=== PATIENT | male | born 1960 | race Caucasian/White ===

== ENCOUNTER 2017-06-02 10:11 | Emergency (ER) | payer OTHER ==
[2017-06-02 10:15] VITALS: TEMP 98.2; BMI 30.7
[2017-06-02] MEDS ORDERED: SODIUM CHLORIDE 1,000 ML IV STA (10:38)
[2017-06-02] MEDS ORDERED: METOCLOPRAMIDE HCL INJECTION 10 MG/2 ML VIAL IVPB ONE (10:38)
[2017-06-02] MEDS ORDERED: METOCLOPRAMIDE HCL INJECTION 10 MG/2 ML VIAL ONE (10:55)
--- NOTE | 2017-06-02 10:59 | PDOC ---
History of Present Illness - General Chief Complaint: Blood Pressure Problem Stated Complaint: ELEVATED BP Time Seen by Provider: 06/02/17 10:25 History Source: Patient - History of Present Illness Timing/Duration: other (last night) Associated Symptoms: reports: headaches, malaise. denies: chest pain, cough, diaphoresis, fever/chills, nausea/vomiting, shortness of breath, weakness Past History - Past Medical History Allergies/Adverse Reactions: Allergies Allergy/AdvReac Type Severity Reaction Status Date / Time No Known Allergies Allergy Verified 06/02/17 10:15 Home Medications: Ambulatory Orders Lisinopril [Zestril] 20 mg PO DAILY 03/16/12 Metformin HCl [Glucophage Xr] 500 mg PO TID 03/16/12 Lisinopril [Prinivil -] 40 mg PO DAILY #30 tablet 06/02/17 Diabetes: Yes HTN: Yes Hypercholesterolemia: Yes - Psycho/Social/Smoking Cessation Hx Anxiety: No Suicidal Ideation: No Smoking Status: Yes Smoking History: Never smoked Number of Cigarettes Smoked Daily: 2 Information on smoking cessation initiated: No Hx Alcohol Use: Yes (daily) Substance Use Type: Alcohol Review of Systems - Review of Systems Constitutional: Yes: Malaise. No: Chills, Fever HEENTM: No: Blurred Vision Respiratory: No: Cough, Shortness of Breath Cardiac (ROS): No: Chest Pain ABD/GI: No: Nausea, Vomiting Neurological: Yes: Headache, Dizziness *Physical Exam - Vital Signs Last Vital Signs Temp Pulse Resp BP Pulse Ox 98.2 F 99 H 19 159/97 97 06/02/17 10:12 06/02/17 10:12 06/02/17 10:12 06/02/17 10:12 06/02/17 10:12 - Physical Exam General Appearance: Yes: Appropriately Dressed. No: Apparent Distress HEENT: positive: Normal Voice. negative: Scleral Icterus (R), Scleral Icterus ( L) Neck: positive: Supple Respiratory/Chest: positive: Lungs Clear, Normal Breath Sounds. negative: Respiratory Distress Cardiovascular: positive: Regular Rate, S1, S2 Gastrointestinal/Abdominal: positive: Soft. negative: Tender Extremity: positive: Normal Inspection Integumentary: positive: Dry, Warm Neurologic: positive: Fully Oriented, Alert, Normal Mood/Affect Heart Score/ECG Review - ECG Intrepretation Comment:: 06/02/17 12:44 TWI in lead 111 only, ekg otherwise unremarkable ED Treatment Course - LABORATORY CBC & Chemistry Diagram: 06/02/17 10:45 06/02/17 10:45 - RADIOLOGY Radiology Studies Ordered: Category Date Time Status HEAD CT WITHOUT CONTRAST [CT] Stat CT Scan 06/02/17 10:38 Ordered Medical Decision Making - Medical Decision Making 06/02/17 10:52 56-year-old male, history of [id number] diabetes, hyperlipidemia, hypertension, non-compliant with lisinopril, here with malaise and occipital headache in the setting of elevated blood pressure. Patient states last night he started feeling unwell and anxious and had a constant occipital headache with possible dizziness. Symptoms have since improved. No nausea, vomiting, visual changes, slurred speech or focal weakness. Denies CP or SOB. States blood pressure last night was 200s over 100s. Patient reports that his blood pressure has been increasing and does admit that he does not always take his lisinopril. States last time he saw his primary doctor was over a year ago, but is planning on changing doctors as he has a new insurance that his old doctor no longer accepts. Patient also reports a history of alcohol abuse, especially over the past 8 months in the face of life stressors. Admits to drinking half a pint of rum a day, but states he stopped drinking 2 days ago and not sure if this is the source of his symptoms See exam [place] w/ malaise w/ worsening HTN in the setting of non-compliance and recent cessation of ETOH after prolonged use Stable in ED w/ no focal deficits and does not appear to be in withdrawal at this time -will check basic labs and CTH -anticipate discharge if w/u neg w/ instructions to take BP meds as directed and will will refer to new PCP 06/02/17 10:59 06/02/17 12:[address] head unremarkable. EKG w/ twi in lead 111 only, no old to compare. In the setting of no chest pain/sob and neg trop, will not explore further at this time. After patient was informed of results, patient became extremely emotional and began crying. Reports that his 20-year-old son was recently incarcerated. Patient does report feeling better after IV fluid and Reglan and requesting discharge at this time. Will discharge w/ refill of lisinopril (had lengthy discussion with patient about importance of compliance). Will refer to new PCP *DC/Admit/Observation/Transfer Diagnosis at time of Disposition: Headache Qualifiers: Headache type: unspecified Headache chronicity pattern: acute headache Intractability: not intractable Qualified Code(s): R51 - Headache - Discharge Dispostion Disposition: HOME Condition at time of disposition: Improved - Prescriptions Prescriptions: Lisinopril [Prinivil -] 40 mg PO DAILY #30 tablet - Referrals Referrals: Lamberto Rojas MD [Staff Physician] - - Patient Instructions Printed Discharge Instructions: DI for High Blood Pressure, Alcohol Use Disorder Additional Instructions: Take medication as prescribed and follow-up with your PMD - Post Discharge Activity Work/School Note: Back to Work
[2017-06-02 11:06] LABS: BASOPHIL 0.5 % (0-2.0); EOSINOPHIL 2.2 % (0-4.5); MCH 28.7 pg (25.7-33.7); MCHC 33.4 g/dl (32.0-35.9); MEAN CELL VOLUME 85.9 fl (80-96); MEAN PLT VOLUME 7.8 fl (7.5-11.1); NEUTROPHILS 71.8 % (42.8-82.8); PLATELET COUNT 176 K/MM3 (134-434); RDW 12.6 % (11.9-15.9); WHITE BLOOD COUNT 8.6 K/mm3 (4.0-10.0)
[2017-06-02 11:19] LABS: ALBUMIN 4.4 g/dl (3.4-5.0); ANION GAP 10 (8-16); BILIRUBIN,TOTAL 0.4 mg/dL (0.2-1.0); CALCIUM 9.5 mg/dL (8.5-10.1); CO2 26 mmol/L (21-32); GLUCOSE,RANDOM 172 mg/dL (74-106); SGOT/AST 44 U/L (15-37); SGPT/ALT 106 U/L (12-78); TOT PROT 8.3 g/dl (6.4-8.2)
[2017-06-02 11:21] LABS: ALK PHOS 88 U/L (45-117); CPK 172 IU/L (39-308); TROPONIN I < 0.02 ng/ml (0.00-0.05)
--- NOTE | 2017-06-02 13:09 | EKG ---
Test Reason : Blood Pressure : / mmHG Vent. Rate : 074 BPM Atrial Rate : 074 BPM P-R Int : 156 ms QRS Dur : 084 ms QT Int : 382 ms P-R-T Axes : 043 043 -17 degrees QTc Int : 424 ms NORMAL SINUS RHYTHM NONSPECIFIC T WAVE ABNORMALITY ABNORMAL ECG NO PREVIOUS ECGS AVAILABLE Confirmed by CIERRA CASAREZ, ANUEL ([id number]) on 06/02/2017 1:09:28 PM Referred By: Confirmed By:ANUEL NORTON MD
[2017-06-02 13:24] VITALS: BP 135/75; PULSE 75
== END 2017-06-02 13:53 | disposition home or self-care (01) ==
LOC: JER 10:11
PROC: 3E033GC Introduction of Other Therapeutic Substance into Peripheral Vein, Percutaneous Approach (ICD-10-PCS; principal; 2017-06-02)
PROC: 3E0337Z Introduction of Electrolytic and Water Balance Substance into Peripheral Vein, Percutaneous Approach (ICD-10-PCS; 2017-06-02)
DX: R51 Headache (principal); I10 Essential (primary) hypertension; E78.5 Hyperlipidemia, unspecified; E11.9 Type 2 diabetes mellitus without complications
CPT/HCPCS: 36415; 70450-TC; 80053; 82553; 84484; 85025; 93005; 93010; 99282-25

== ENCOUNTER 2017-11-13 12:45 | Emergency (ER) | payer OTHER ==
[2017-11-13 12:49] VITALS: BP 147/86; TEMP 99.4; BMI 32.3
[2017-11-13] MEDS ORDERED: ONDANSETRON *ODT* 4 MG TABLET SL ONE (15:23)
[2017-11-13] MEDS ORDERED: ONDANSETRON *ODT* 4 MG TABLET ONE (15:28)
--- NOTE | 2017-11-13 15:33 | PDOC ---
History of Present Illness - General Chief Complaint: Cold Symptoms Stated Complaint: ABD PAIN, VOMITING Time Seen by Provider: 11/13/17 15:09 History Source: Patient Exam Limitations: No Limitations - History of Present Illness Initial Comments: 11/13/17 15:28 Patient is a 56-year-old male with history of hypertension, high cholesterol, [id number] diabetes. Patient is an employee at a hospital, 3 days ago started to have diarrhea, chills, vomiting. Ambulatory, eating and drinking without difficulty. Currently afebrile. Past Medical History: [Denies]. Allergies: No known allergies Medications: [ See medication list] Family History: Non-contributory Social History: Denies smoking, alcohol use, or IVDU Vital signs on arrival are [notable for pulse of 122] Review of Systems GENERAL/CONSTITUTIONAL: [Tactile fever. No weakness. No weight change.] HEAD, EYES, EARS, NOSE AND THROAT: [No change in vision. No ear pain or discharge. No sore throat. ] CARDIOVASCULAR: [No chest pain or shortness of breath.] RESPIRATORY: [No cough, wheezing, or hemoptysis.] GASTROINTESTINAL: [Nausea and vomiting + Diarrhea.] GENITOURINARY: [No dysuria, frequency, or change in urination.] MUSCULOSKELETAL: [No joint or muscle swelling or pain. No neck or back pain.] SKIN AND BREASTS: [No rash or easy bruising.] NEUROLOGIC: [No headache, vertigo, loss of consciousness, or loss of sensation.] PSYCHIATRIC: [No depression or anxiety.] ENDOCRINE: [No increased thirst. No abnormal weight change.] HEMATOLOGIC/LYMPHATIC: [No anemia, easy bleeding, or history of blood clots.] ALLERGIC/IMMUNOLOGIC: [No hives or skin allergy. No latex allergy.] Physical Exam: GENERAL: [The patient is awake, alert, and fully oriented, in no acute distress. ] EYES: [Pupils equal, round and reactive to light, extraocular movements intact, sclera anicteric, conjunctiva clear.] ENT: [Ears normal, nares patent, oropharynx clear without exudates. Moist mucous membranes. No uvula deviation. Moist mucus membranes.] NECK: [Normal range of motion, supple without lymphadenopathy, JVD, or masses.] LUNGS: [Breath sounds equal, clear to auscultation bilaterally. No wheezes, and no crackles.] HEART: [Regular rate and rhythm, normal S1 and S2 without murmur, rub or gallop. ] ABDOMEN: [Soft, nontender, normoactive bowel sounds. No guarding, no rebound. No masses. No bruising or abrasions] MUSCULOSKELETAL: [Normal range of motion, no edema. No clubbing or cyanosis. No cords, erythema, or tenderness. No CVA Tenderness with fist.] NEUROLOGICAL: [Cranial nerves II through XII grossly intact. Normal speech, normal gait.] SKIN: [Warm, Dry, normal turgor, no rashes or lesions noted.] Past History - Past Medical History Allergies/Adverse Reactions: Allergies Allergy/AdvReac Type Severity Reaction Status Date / Time No Known Allergies Allergy Verified 11/13/17 12:46 Home Medications: Ambulatory Orders Lisinopril [Zestril] 40 mg PO DAILY 03/16/12 Metformin HCl 500 mg PO ASDIR 11/13/17 Ondansetron [Zofran Odt -] 4 mg SL TID #10 od.tablet 11/13/17 Simvastatin 40 mg PO ASDIR 11/13/17 COPD: No Diabetes: Yes HTN: Yes Hypercholesterolemia: Yes - Suicide/Smoking/Psychosocial Hx Smoking Status: Yes Smoking History: Current every day smoker Number of Cigarettes Smoked Daily: 2 Information on smoking cessation initiated: No Hx Alcohol Use: Yes Drug/Substance Use Hx: No Substance Use Type: Alcohol *Physical Exam - Vital Signs Last Vital Signs Temp Pulse Resp BP Pulse Ox 99.4 F 122 H 18 147/86 98 11/13/17 12:46 11/13/17 12:46 11/13/17 12:46 11/13/17 12:46 11/13/17 12:46 Medical Decision Making - Medical Decision Making 11/13/17 15:40 A/P : Patient here with low-grade fever, diarrhea, nausea, reporting "I feel dry ". Patient is requesting to drink water. Patient with influenza-type illness versus viral there is no rebound tenderness or point tenderness to abdomen patient reports soreness to abdomen because of diarrhea. Zofran 4 mg by mouth 1 given. 11/13/17 17:05 Influenza is negative, patient states he feels better and able to tolerate fluids after Zofran, no abdominal pain, also feels better after IV fluids heart rate is in normal range, I will discharge patient home, Zofran as needed for nausea, follow up with PMD in 2 days if symptoms persist. If any dizziness, chest pain, shortness of breath, abdominal pain, any other concerns return to ER. [place] diet. *DC/Admit/Observation/Transfer Diagnosis at time of Disposition: Viral gastroenteritis - Discharge Dispostion Disposition: HOME Condition at time of disposition: Good Admit: No - Prescriptions Prescriptions: Ondansetron [Zofran Odt -] 4 mg SL TID #10 od.tablet - Referrals Referrals: Xochitl Rice [Primary Care Provider] - - Patient Instructions Printed Discharge Instructions: DI for Viral Gastroenteritis -- Adult Additional Instructions: Please increase fluids, gatorade. [place] diet, bread, rice, toast, bananas. Follow up with pmd in two days if symptoms persist. - Post Discharge Activity Forms/Work/School Notes: Back to Work
[2017-11-13] MEDS ORDERED: SODIUM CHLORIDE 0.9% 500 ML INFUS.BAG IV ONE (15:35)
[2017-11-13 16:13] VITALS: PULSE 89
[2017-11-13 20:29] LABS: PH,URINE 5.5 (5.0-8.0); URINE APPEARANCE CLEAR; URINE BILIRUBIN 1+ (NEGATIVE); URINE BLOOD NEGATIVE (NEGATIVE); URINE COLOR YELLOW; URINE GLUCOSE (UA) NEGATIVE (NEGATIVE); URINE KETONE NEGATIVE (NEGATIVE); URINE LEUK ESTERASE NEGATIVE (NEGATIVE); URINE NITRITE NEGATIVE (NEGATIVE); URINE UROBILINOGEN 0.2 mg/dL (0.2-1.0)
[2017-11-13 20:52] LABS: URINE PROTEIN 1+ (NEGATIVE)
[2017-11-13 21:18] LABS: EPI CELLS NONE SEEN /HPF (FEW)
== END 2017-11-13 17:13 | disposition home or self-care (01) ==
LOC: JERFT 12:45
DX: K52.9 Noninfective gastroenteritis and colitis, unspecified (principal); I10 Essential (primary) hypertension; E11.9 Type 2 diabetes mellitus without complications; Z79.84 Long term (current) use of oral hypoglycemic drugs; E78.00 Pure hypercholesterolemia, unspecified
CPT/HCPCS: 81003; 81015; 87086; 87804; 99282-25

== ENCOUNTER 2025-03-14 13:45 | Emergency (ER) | payer OTHER ==
[2025-03-14 13:51] VITALS: TEMP 98.6; BMI 32.3
[2025-03-14 14:59] LABS: ABSOLUTE IMMATURE GRANULOCYTES 0.04 x10^3/uL (0.0-0.031); BASOPHILS # 0.06 x10^3/uL (0.01-0.08); EOSINOPHIL % 1.5 % (0.8-7.0); EOSINOPHILS # 0.19 x10^3/uL (0.04-0.54); HEMATOCRIT 51.3 % (40.1-51.0); HEMOGLOBIN 16.8 g/dL (13.7-17.5); MCHC 32.7 g/dl (32.3-36.5); MEAN CELL VOLUME 88.1 fl (79.0-92.2); MEAN PLT VOLUME 9.5 fl (9.4-12.4); MONOCYTE # 1.51 x10^3/uL (0.30-0.82); PLATELET COUNT 156 x10^3/uL (163-337); RDW 12.9 % (12.2-16.4)
[2025-03-14 15:00] LABS: PH,URINE 6.5 (5.0-8.0); URINE APPEARANCE CLEAR; URINE BILIRUBIN NEGATIVE (NEGATIVE); URINE COLOR YELLOW; URINE GLUCOSE (UA) 3+ (NEGATIVE); URINE KETONE NEGATIVE (NEGATIVE); URINE LEUK ESTERASE NEGATIVE (NEGATIVE); URINE NITRITE NEGATIVE (NEGATIVE); URINE PROTEIN TRACE (NEGATIVE); URINE UROBILINOGEN 0.2 mg/dL (0.2-1.0)
[2025-03-14 15:32] LABS: ALBUMIN 4.2 g/dl (3.4-5.0); BLOOD UREA NITROGEN 20.8 mg/dL (7-18); POTASSIUM 4.4 mmol/L (3.5-5.1)
[2025-03-14 15:35] LABS: CALCIUM 10.6 mg/dL (8.5-10.1); CREATININE 1.2 mg/dL (0.55-1.3)
[2025-03-14 15:39] LABS: BILIRUBIN,TOTAL 0.7 mg/dL (0.2-1); TOT PROT 8.1 g/dl (6.4-8.2)
[2025-03-14 15:54] VITALS: BP 110/56; PULSE 75; RESP 14
[2025-03-14] MEDS: BACITRACIN 0.9 GM PACKET TP ONE (18:11)
== END 2025-03-14 18:18 | disposition home or self-care (01) ==
LOC: JER 13:45
DX: K92.2 Gastrointestinal hemorrhage, unspecified (principal); R30.0 Dysuria; R31.9 Hematuria, unspecified
CPT/HCPCS: 36415; 74177-TC; 80053; 81003; 85025; 87086; 99285-25; Q9967